=== PATIENT | female | born 1980 | race Caucasian/White ===

== ENCOUNTER → 2017-03-12 | Outpatient (CLI) | payer OTHER ==
[~2017-03-12] MED LIST: BENTYL10 MG PO; DPS FOR LIBRAX1 CAP PO; PROTONIX40 MG PO; VALTREX1000 MG PO
== END | disposition disaster alternative care site (69) ==
LOC: GRAD 09:43
DX: R10.9 Unspecified abdominal pain (principal); K76.0 Fatty (change of) liver, not elsewhere classified; K57.30 Diverticulosis of large intestine without perforation or abscess without bleeding; R19.7 Diarrhea, unspecified; R14.0 Abdominal distension (gaseous); Z90.49 Acquired absence of other specified parts of digestive tract; Z90.710 Acquired absence of both cervix and uterus
CPT/HCPCS: Q9967

== ENCOUNTER → 2017-04-11 | Day surgery (SDC) | payer OTHER ==
[~2017-04-11] VITALS: Ht 157.5 cm; Wt 60.2 kg
--- NOTE | ~2017-04-11 | CON ---
PATIENT'S NAME: SHANKAR OSMAN [facility] AGE: 36 Y [address] ROOM: [place] [id number] LOCATION: [facility] ADMIT DATE: 04/11/2017 Consultation DISCHARGE DATE: FAMILY PHYSICIAN: PHYSICIAN, CHENCHO ATTENDING PHYSICIAN: TERRI MAN DATE OF CONSULTATION: 04/12/2017 TELEPHONE CONVERSATION: Shankar Osman called me today through the answering service. She said she had a couple of black bowel movements. The first one was somewhat formed and the second one was all liquid. She feels well. She has had no abdominal discomfort. She had some abdominal discomfort yesterday. She had an upper endoscopy with biopsy. We had a long discussion. I asked her to come down to the emergency room, but she states she feels better and she feels well. I have asked her to continue to watch her condition. I have advised her to contact us immediately should her condition change. She has agreed to that and will be following up as needed. The patient did have some episodes of retching after the procedure. I wonder if she had something like a Tracy-Tillman tear. The endoscopy procedure obviously did not entail any interventions that could cause problems. The patient does feel well at this time. MD YIFAN GEORGE/cindy /[id number] d: 04/13/172 t: 04/15/17 1803, CONSULTATION REPORT
== END | disposition disaster alternative care site (69) ==
LOC: GPOC 04-07 10:00
PROC: 0DB98ZX Excision of Duodenum, Via Natural or Artificial Opening Endoscopic, Diagnostic (ICD-10-PCS; principal; 2017-04-11)
PROC: 0DB58ZX Excision of Esophagus, Via Natural or Artificial Opening Endoscopic, Diagnostic (ICD-10-PCS; 2017-04-11)
PROC: 0DB68ZX Excision of Stomach, Via Natural or Artificial Opening Endoscopic, Diagnostic (ICD-10-PCS; 2017-04-11)
PROC: 0DBE8ZX Excision of Large Intestine, Via Natural or Artificial Opening Endoscopic, Diagnostic (ICD-10-PCS; 2017-04-11)
DX: K20.0 Eosinophilic esophagitis (principal); K31.7 Polyp of stomach and duodenum; K31.9 Disease of stomach and duodenum, unspecified; F32.9 Major depressive disorder, single episode, unspecified; Z98.890 Other specified postprocedural states
CPT/HCPCS: J2001; J7030

== ENCOUNTER → 2017-04-16 | Outpatient (CLI) | payer OTHER | END | disposition disaster alternative care site (69) | LOC: GRAD 09:18 | DX: K20.0 Eosinophilic esophagitis (principal); R10.9 Unspecified abdominal pain; Z90.49 Acquired absence of other specified parts of digestive tract ==

== ENCOUNTER → 2017-05-25 | Day surgery (SDC) | payer OTHER ==
[~2017-05-25] VITALS: Ht 157.5 cm; Wt 62.6 kg
== END | disposition disaster alternative care site (69) ==
LOC: GPOC 05-21 09:00 → GEND 07:01 → GPOC 09:00
PROC: 0DB28ZX Excision of Middle Esophagus, Via Natural or Artificial Opening Endoscopic, Diagnostic (ICD-10-PCS; principal; 2017-05-25)
PROC: 0DB38ZX Excision of Lower Esophagus, Via Natural or Artificial Opening Endoscopic, Diagnostic (ICD-10-PCS; 2017-05-25)
DX: K20.0 Eosinophilic esophagitis (principal); K31.89 Other diseases of stomach and duodenum; F32.9 Major depressive disorder, single episode, unspecified; Z90.49 Acquired absence of other specified parts of digestive tract; Z98.890 Other specified postprocedural states
CPT/HCPCS: J2001; J7030